=== PATIENT | female | born 2000 | race Two or more races ===

== ENCOUNTER 2020-07-13 14:45 | Inpatient (IN) | payer OTHER ==
[~2020-07-13] VITALS: Ht 149.9 cm; Wt 66.7 kg
[2020-07-18] MEDS ORDERED: PRENATAL + DHA1 EAC1 PO (07:48)
== END 2020-07-21 13:38 | DRG 807 ==
LOC: EDSTATUS 14:45 → LDR 07-18 06:49 → OB/GYN 07-19 04:54 → LDR 07-19 08:08 → SURG-SUITE 07-19 15:10 → OB/GYN 07-23 14:45
PROVIDERS: ADMIT Obstetrics & Gynecology; ATTEND Obstetrics & Gynecology
PROC: 4A0HXFZ Measurement of Products of Conception, Cardiac Rhythm, External Approach (ICD-10-PCS; 2020-07-18)
PROC: 10E0XZZ Delivery of Products of Conception, External Approach (ICD-10-PCS; principal; 2020-07-19)
PROC: 0HQ9XZZ Repair Perineum Skin, External Approach (ICD-10-PCS; 2020-07-19)
PROC: 3E033VJ Introduction of Other Hormone into Peripheral Vein, Percutaneous Approach (ICD-10-PCS; 2020-07-19)
DX: O70.0 First degree perineal laceration during delivery (principal); Z37.0 Single live birth; Z3A.39 39 weeks gestation of pregnancy; Z20.828 Contact with and (suspected) exposure to other viral communicable diseases